=== PATIENT | male | born 1995 | race Hispanic/Latino ===

== ENCOUNTER 2017-04-10 08:29 | Emergency (ER) | payer SELFPAY ==
[2017-04-10] MEDS ORDERED: Ibuprofen 800 MG TAB ONE (08:56)
== END 2017-04-10 09:21 | disposition home or self-care (01) ==
LOC: ERS 08:29
DX: B34.9 Viral infection, unspecified (principal); F17.210 Nicotine dependence, cigarettes, uncomplicated
CPT/HCPCS: 99283

== ENCOUNTER 2018-10-04 21:37 | Emergency (ER) | payer SELFPAY | END 2018-10-04 23:00 | disposition home or self-care (01) | LOC: ERS 21:37 | DX: B35.3 Tinea pedis (principal); B35.1 Tinea unguium; Z87.891 Personal history of nicotine dependence ==

== ENCOUNTER 2019-09-26 05:54 | Emergency (ER) | payer SELFPAY | END 2019-09-26 06:30 | disposition home or self-care (01) | LOC: ERS 05:54 | DX: M26.601 Right temporomandibular joint disorder, unspecified (principal); F17.210 Nicotine dependence, cigarettes, uncomplicated | CPT/HCPCS: 99282 ==

== ENCOUNTER 2019-10-10 05:04 | Emergency (ER) | payer BC, SELFPAY ==
[2019-10-10] MEDS ORDERED: Ondansetron ODT 8 MG TAB ONE (06:26)
[2019-10-10] MEDS ORDERED: Dicyclomine 20 MG TAB ONE (06:26)
== END 2019-10-10 07:39 | disposition home or self-care (01) ==
LOC: ERS 05:04
DX: A08.4 Viral intestinal infection, unspecified (principal); K29.70 Gastritis, unspecified, without bleeding; Z87.891 Personal history of nicotine dependence
CPT/HCPCS: 99283; Q0162

== ENCOUNTER 2019-10-27 09:58 | Emergency (ER) | payer BC, OTHER ==
[2019-10-28 12:54] LABS: SARS-CoV-2 MS2 Positive; SARS-CoV-2 N Gene Negative; SARS-CoV-2 S Gene Negative; SARS-CoV-2 orf1ab Negative
== END 2019-10-27 10:30 | disposition home or self-care (01) ==
LOC: ERS 09:58
DX: R19.7 Diarrhea, unspecified (principal); Z20.828 Contact with and (suspected) exposure to other viral communicable diseases
CPT/HCPCS: 87635; 99284; U0003

== ENCOUNTER 2019-11-22 17:03 | Emergency (ER) | payer BC, OTHER | END 2019-11-22 17:19 | disposition home or self-care (01) | LOC: ERS 17:03 | DX: R51 Headache (principal); R11.0 Nausea | CPT/HCPCS: 99283 ==

== ENCOUNTER 2020-12-05 | Emergency (ER) | payer BC | END 2020-12-05 08:58 | disposition home or self-care (01) ==

== ENCOUNTER 2021-01-04 07:00 | Emergency (ER) | payer BC ==
[2021-01-04 17:14] LABS: SARS-CoV-2 PCR by NAA DETECTED (NotDetected)
== END 2021-01-04 07:28 | disposition home or self-care (01) ==
LOC: ERS 07:00
DX: U07.1 COVID-19 (principal); Z87.891 Personal history of nicotine dependence
CPT/HCPCS: 99283; U0003; U0005

== ENCOUNTER 2021-04-10 19:21 | Inpatient (IN) | payer OTHER, BC ==
[~2021-04-10 19:21] MED LIST: ISOVUE-370 76%-LOCM 1 ML ONE
[2021-04-10 19:44] LABS: #Basophils 0.1 thou/uL (0.0-0.2); #Eosinphils 0.2 thou/uL (0.0-0.7); #Lymphocytes 4.4 thou/uL (1.20-3.40); #Monocytes 1.1 thou/uL (0.11-0.59); #Neutrophils 11.9 thou/uL (1.40-6.50); %Basophils 0.4 % (0.0-1.0); %Monocytes 6.3 % (0.0-10.0); %Neutrophils 67.3 % (42.0-75.0); Hemoglobin 15.1 g/dL (14.0-18.0); Mean Corpuscular HGB CONC 35.4 g/dL (32.0-36.0); Mean Corpuscular Hemoglobin 33.4 pg (27.0-31.0); Mean Corpuscular Volume 94.1 fL (78.0-98.0); Mean Platelet Volume 10.3 fL (7.4-10.4); Platelet Count 182 thou/uL (130-400); RBC Distribution Width 11.5 % (11.5-14.5); Red Blood Cell (RBC) Count 4.53 mill/uL (4.70-6.10); White Blood Cell (WBC) Count 17.7 thou/uL (4.8-10.8)
[2021-04-10] MEDS ORDERED: HYDROmorphone 0.5 MG/0.5 ML SYRINGE ONE ×2 (19:50→21:04)
[2021-04-10 20:15] LABS: ALT (SGPT) 57 U/L (8-55); AST (SGOT) 49 U/L (5-34); Albumin 4.2 g/dL (3.5-5.0); Alcohol 36 mg/dL (Less than 10); Alkaline Phosphatase 78 U/L (40-110); Anion Gap 15 mmol/L (10-20); BUN (Urea Nitrogen) 11 mg/dL (8.9-20.6); Bilirubin, Total 0.7 mg/dL (0.2-1.2); Calc. Creatinine Clearance 0 mL/min (70-130); Calcium 8.8 mg/dL (7.8-10.44); Carbon Dioxide 22 mmol/L (22-29); Chloride 103 mmol/L (98-107); Globulin 3.3 g/dL (2.4-3.5); Glucose 93 mg/dL (70-105); Potassium 3.3 mmol/L (3.5-5.1); Protein, Total 7.5 g/dL (6.0-8.3); Sodium 137 mmol/L (136-145)
[2021-04-10] MEDS ORDERED: Ondansetron PF 4 MG/2 ML Vial IVP PRN (22:01)
[2021-04-10] MEDS ORDERED: hydrALAZINE 20 MG/ML VIAL SLOW IVP PRN (22:01)
[2021-04-10] MEDS ORDERED: Dextrose 50% Abboject 50 ML SYRINGE SLOW IVP PRN (22:01)
[2021-04-10] MEDS ORDERED: Dextrose 5% in Water 1,000 ML IV PRN (22:01)
[2021-04-10] MEDS ORDERED: TETANUS AND DIPHTHERIA TOX/PF 0.5 ML DISP.SYRIN IM ONE (22:01)
[2021-04-10 22:04] LABS: Bacteria/HPF None Seen HPF (None Seen); Bilirubin Negative (Negative); Blood, Urine Trace (Negative); Clarity Clear (Clear); Glucose, Urine (Dipstick) Normal (Negative); Ketone, Urine Negative (Negative); Leukocyte Negative Leu/uL (Negative); Nitrite Negative (Negative); Protein, Urine (Dipstick) Negative (Neg-Trace); RBC/HPF 0-3 HPF (0-3); Squamous Epithelial None Seen HPF (0-3); Urobilinogen Normal mg/dL (Less than 2); WBC/HPF 0-3 HPF (0-3)
[2021-04-10 22:06] LABS: Specific Gravity, Urine 1.047 (1.002-1.036)
[2021-04-10] MEDS ORDERED: Morphine 4 MG/ML VIAL SLOW IVP PRN (22:07)
[2021-04-10] MEDS ORDERED: Ketamine 50 MG/ML (10ML VIAL) ONE (22:10)
[2021-04-10 22:29] LABS: SARS-CoV-2 NAA Rapid Test Not Detected (NotDetected)
[2021-04-10] MEDS: Acetaminophen 325 MG TAB PO SCH (23:33)
[2021-04-10] MEDS: Sodium Chloride 0.9% 1,000 ML IV SCH (23:33)
[2021-04-10] MEDS: Ketorolac Tromethamine 30 MG/ML VIAL IVP SCH (23:34)
[2021-04-10] MEDS: traMADol HCl 50 MG TAB PO SCH (23:34)
[2021-04-11] MEDS: Potassium Chloride 20 MEQ in Premix Bag 1 BAG IVPB SCH ×2 (00:14→02:12)
[2021-04-11] MEDS: Morphine 4 MG/ML VIAL SLOW IVP PRN ×2 (02:17→04:14)
[2021-04-11 03:05] VITALS: BMI 32.0
[2021-04-11] MEDS: Cyclobenzaprine 10 MG TAB PO PRN ×2 (03:39→18:37)
[2021-04-11 04:29] LABS: #Lymphocytes 2.1 thou/uL (1.20-3.40); #Monocytes 1.6 thou/uL (0.11-0.59); #Neutrophils 10.8 thou/uL (1.40-6.50); %Eosinophils 0.1 % (0.0-10.0); %Lymphocytes 14.7 % (21.0-51.0); %Monocytes 10.9 % (0.0-10.0); %Neutrophils 74.3 % (42.0-75.0); Hemoglobin 14.7 g/dL (14.0-18.0); Mean Corpuscular HGB CONC 35.1 g/dL (32.0-36.0); Mean Corpuscular Hemoglobin 33.4 pg (27.0-31.0); Mean Corpuscular Volume 95.3 fL (78.0-98.0); Mean Platelet Volume 10.4 fL (7.4-10.4); Platelet Count 173 thou/uL (130-400); RBC Distribution Width 11.6 % (11.5-14.5); Red Blood Cell (RBC) Count 4.39 mill/uL (4.70-6.10); White Blood Cell (WBC) Count 14.6 thou/uL (4.8-10.8)
[2021-04-11 04:39] LABS: Phosphorus 3.5 mg/dL (2.3-4.7)
[2021-04-11 04:51] LABS: Anion Gap 14 mmol/L (10-20); BUN (Urea Nitrogen) 9 mg/dL (8.9-20.6); Calc. Creatinine Clearance 187 mL/min (70-130); Carbon Dioxide 21 mmol/L (22-29); Chloride 102 mmol/L (98-107); Glucose 114 mg/dL (70-105); Potassium 5.3 mmol/L (3.5-5.1); Sodium 132 mmol/L (136-145)
[2021-04-11] MEDS: traMADol HCl 50 MG TAB PO SCH ×4 (05:31→23:42)
[2021-04-11] MEDS: Ketorolac Tromethamine 30 MG/ML VIAL IVP SCH (05:35)
[2021-04-11] MEDS: Acetaminophen 325 MG TAB PO SCH (05:35)
[2021-04-11] MEDS ORDERED: ceFAZolin 2 GM/Dextrose 50 ML 2 GM in Premix Bag 1 BAG IVPB SCH (07:30)
[2021-04-11] MEDS ORDERED: Sodium Chloride 0.9% 10 ML ONE (08:08)
[2021-04-11] MEDS: Sodium Chloride 0.9% 1,000 ML IV SCH (08:11)
[2021-04-11] MEDS: Senokot S 8.6-50 MG TAB PO SCH ×2 (08:12→20:38)
[2021-04-11] MEDS: Famotidine/PF 20 mg/2ml Vial SLOW IVP SCH ×2 (08:12→20:38)
[2021-04-11] MEDS: Polyethylene Glycol 3350 17 GM Packet PO SCH (08:12)
[2021-04-11] MEDS ORDERED: ceFAZolin 2 GM/DEX 5% 100 ML BAG ONE (08:13)
[2021-04-11] MEDS ORDERED: Dexmedetomidine 200 MCG/2 ML VIAL ONE (08:56)
[2021-04-11] MEDS ORDERED: HYDROmorphone 2 MG/ML VIAL ONE (08:56)
[2021-04-11] MEDS ORDERED: Fentanyl 100 MCG/2 ML VIAL ONE ×3 (08:56→15:10)
[2021-04-11] MEDS ORDERED: Morphine 2 MG/ML VIAL SLOW IVP PRN (10:20)
[2021-04-11] MEDS ORDERED: Morphine 4 MG/ML VIAL SLOW IVP PRN (10:45)
[2021-04-11] MEDS ORDERED: Labetalol HCl 100 MG/20 ML VIAL ONE ×2 (13:13→14:49)
[2021-04-11] MEDS ORDERED: Lidocaine 1% PF 5 ML VIAL ONE (13:13)
[2021-04-11] MEDS ORDERED: Dexamethasone 20 MG/5 ML VIAL ONE (13:13)
[2021-04-11] MEDS ORDERED: Rocuronium Bromide 10 MG/ML (10ML VIAL) ONE (13:13)
[2021-04-11] MEDS ORDERED: ePHEDrine 50 MG/ML VIAL ONE (13:13)
[2021-04-11] MEDS ORDERED: Glycopyrrolate 0.2 MG/ML 5 ML SYRINGE ONE (13:13)
[2021-04-11] MEDS ORDERED: PROPOFOL 200 MG/20 ML VIAL ONE (13:13)
[2021-04-11] MEDS ORDERED: Ondansetron PF 4 MG/2 ML Vial ONE (13:13)
[2021-04-11] MEDS ORDERED: Ketorolac Tromethamine 30 MG/ML VIAL ONE (13:13)
[2021-04-11] MEDS ORDERED: Promethazine HCl 25 MG/ML VIAL IVPB PRN (13:55)
[2021-04-11] MEDS ORDERED: Meperidine HCl/PF 25 MG/ML VIAL SLOW IVP PRN (13:55)
[2021-04-11] MEDS ORDERED: Promethazine HCl 25 MG/ML VIAL IM PRN (13:55)
[2021-04-11] MEDS ORDERED: Ondansetron HCl/PF 4 MG/2 ML Vial IVP PRN (13:55)
[2021-04-11] MEDS ORDERED: HYDROmorphone 2 MG/ML VIAL SLOW IVP PRN (13:55)
[2021-04-11] MEDS ORDERED: ceFAZolin 1 GM/D5W 1 GM in Premix Bag 1 BAG IVPB SCH (16:00)
[2021-04-11] MEDS: Acetaminophen 500 MG TAB PO SCH ×3 (17:32→23:42)
[2021-04-11] MEDS: Ibuprofen 200 MG TAB PO SCH ×2 (17:39→20:38)
[2021-04-11] MEDS: ceFAZolin 2 GM/Dextrose 50 ML 2 GM in Premix Bag 1 BAG IVPB SCH ×2 (17:46→23:43)
[2021-04-12] MEDS: Ibuprofen 200 MG TAB PO SCH ×2 (05:33→13:16)
[2021-04-12] MEDS: Acetaminophen 500 MG TAB PO SCH ×2 (05:34→11:08)
[2021-04-12] MEDS: traMADol HCl 50 MG TAB PO SCH ×2 (05:35→11:08)
[2021-04-12 06:29] LABS: #Lymphocytes 1.3 thou/uL (1.20-3.40); #Monocytes 0.8 thou/uL (0.11-0.59); #Neutrophils 11.1 thou/uL (1.40-6.50); %Basophils 0.1 % (0.0-1.0); %Eosinophils 0.3 % (0.0-10.0); %Lymphocytes 9.5 % (21.0-51.0); %Neutrophils 84.1 % (42.0-75.0); Hemoglobin 12.5 g/dL (14.0-18.0); Mean Corpuscular HGB CONC 34.8 g/dL (32.0-36.0); Mean Corpuscular Hemoglobin 33.6 pg (27.0-31.0); Mean Corpuscular Volume 96.7 fL (78.0-98.0); Mean Platelet Volume 10.8 fL (7.4-10.4); Platelet Count 152 thou/uL (130-400); RBC Distribution Width 11.7 % (11.5-14.5); Red Blood Cell (RBC) Count 3.73 mill/uL (4.70-6.10); White Blood Cell (WBC) Count 13.2 thou/uL (4.8-10.8)
[2021-04-12 06:51] LABS: Anion Gap 12 mmol/L (10-20); BUN (Urea Nitrogen) 6 mg/dL (8.9-20.6); Calc. Creatinine Clearance 184 mL/min (70-130); Carbon Dioxide 24 mmol/L (22-29); Chloride 101 mmol/L (98-107); Glucose 204 mg/dL (70-105); Phosphorus 2.3 mg/dL (2.3-4.7); Potassium 3.6 mmol/L (3.5-5.1); Sodium 133 mmol/L (136-145)
[2021-04-12] MEDS: Famotidine/PF 20 mg/2ml Vial SLOW IVP SCH (08:48)
[2021-04-12] MEDS: Senokot S 8.6-50 MG TAB PO SCH (08:48)
[2021-04-12] MEDS: Polyethylene Glycol 3350 17 GM Packet PO SCH (08:49)
[2021-04-12] MEDS ORDERED: Enoxaparin Sodium 40 MG/0.4 ML SYRINGE SC SCH (09:00)
[2021-04-12 09:17] VITALS: BP 120/77; TEMP 98
[2021-04-12] MEDS ORDERED: Aspirin 81 mg Enteric Coated Tablet PO SCH (11:15)
== END 2021-04-12 15:35 | disposition home or self-care (01) | DRG 956 ==
LOC: ERS 19:21 → SURG A 22:05 → OBSVTOIN 22:05
PROVIDERS: ADMIT Surgery; ATTEND Surgery
PROC: 0PSL04Z Reposition Left Ulna with Internal Fixation Device, Open Approach (ICD-10-PCS; principal; 2021-04-11)
PROC: 0QS906Z Reposition Left Femoral Shaft with Intramedullary Internal Fixation Device, Open Approach (ICD-10-PCS; 2021-04-11)
PROC: 0PSJ04Z Reposition Left Radius with Internal Fixation Device, Open Approach (ICD-10-PCS; 2021-04-11)
DX: S52.92XB Unspecified fracture of left forearm, initial encounter for open fracture type I or II (principal); S72.302A Unspecified fracture of shaft of left femur, initial encounter for closed fracture; Z20.822 Contact with and (suspected) exposure to COVID-19; V89.2XXA Person injured in unspecified motor-vehicle accident, traffic, initial encounter; S52.202B Unspecified fracture of shaft of left ulna, initial encounter for open fracture type I or II; S00.83XA Contusion of other part of head, initial encounter; E87.6 Hypokalemia; E87.5 Hyperkalemia
CPT/HCPCS: 25565; 36415; 70450; 71260; 72125; 74177; 76000; 80048; 80053; 80307; 81003; 81015; 83735; 84100; 85025; 93005; 96374; 96376; 99152; C1713; C1874; G0390; J0690; J1100; J1170; J1650; J1885; J2270; J2405; J2704; J3010; J3480; J3490; J7050; Q9966; S0028; U0002

== ENCOUNTER 2022-06-17 19:09 | Emergency (ER) | payer BC, SELFPAY | END 2022-06-17 20:00 | disposition home or self-care (01) | LOC: ERS 19:09 | DX: R11.2 Nausea with vomiting, unspecified (principal); R19.7 Diarrhea, unspecified | CPT/HCPCS: 99283 ==